=== PATIENT | male | born 1950 | race Caucasian/White ===

== ENCOUNTER → 2016-08-22 | Outpatient (CLI) | payer MEDICARE, OTHER ==
[2016-02-27 13:46] VITALS: BP 123/72
[~2016-08-22] MED LIST: ASPI-630 PO; SIMV20TA3 PO; TRIA1CAP3 PO
--- NOTE | 2016-08-22 12:21 | RAD ---
Examination: CT of the abdomen pelvis without contrast History: History of newly diagnosed prostate cancer Comparison: None available PQRS Compliance Statement: One or more of the following individualized dose reduction techniques were utilized for this examination: 1. Automated exposure control 2. Adjustment of the mA and/or kV according to patient size 3. Use of iterative reconstruction technique Technique: Axial CT images of the abdomen pelvis were performed without contrast. Coronal and sagittal reformats were performed Findings: The visualized bibasal lungs grossly appears unremarkable. The evaluation of the solid organs limited due to lack of IV contrast. Evaluation of bowel is limited lack of oral contrast. The visualized liver, spleen, adrenals grossly appears unremarkable. The gallbladder is mildly distended. The stomach is mildly distended. The small bowel is nondilated. Feces and gas noted throughout the colon The urinary bladder is mildly distended. Mildly enlarged prostate gland. No evidence of intrarenal collecting system calculi or hydronephrosis identified. The caliber of the aorta grossly appears unremarkable. Mild aortic atherosclerosis. Mild degenerative changes lumbar spine. Impression: 1. No acute intra-abdominal findings. 2. No obvious evidence of metastases. 2. Mildly enlarged prostate gland.
== END | disposition home or self-care (01) ==
LOC: CT 11:20
PROVIDERS: ATTEND Urology
DX: C61 Malignant neoplasm of prostate (principal); N40.0 Benign prostatic hyperplasia without lower urinary tract symptoms
CPT/HCPCS: 74176

== ENCOUNTER → 2016-12-21 | Outpatient (CLI) | payer MEDICARE, OTHER ==
[2016-02-27 13:46] VITALS: BP 123/72
--- NOTE | 2016-12-21 13:02 | RAD ---
Examination: Ultrasound right lower extremity venous duplex History: History of right thigh pain, calf pain. Comparison: None available Technique: Grayscale, color Doppler 2-D, spectral waveform analysis of the right lower extremity venous system were performed. Findings: The visualized common femoral vein, superficial femoral vein, popliteal vein demonstrate normal compression and augmentation of flow. The visualized calf veins are patent. Impression: No evidence of deep venous thrombosis identified in the visualized right lower extremity venous system.
== END | disposition home or self-care (01) ==
LOC: US 11:37
PROVIDERS: ATTEND Family Medicine
DX: M79.604 Pain in right leg (principal)
CPT/HCPCS: 93971

== ENCOUNTER → 2018-07-22 | Day surgery (SDC) | payer MEDICARE, OTHER ==
[~2018-07-22] MED LIST changes: +ALBUTEROL SULFATE 2.5 MG/3 ML NEBU. NEB PRN; +ATROPINE 0.5 MG/5 ML DISP.SYRIN. IV PRN; +DIAZIDE PO; +GLYCOPYRROLATE 1 MG/5 ML VIAL. ONE; +IV RINGERS SOLUTION,LACTATED 1,000 ML IV SCH; +LIDOCAINE 2% PF Vial for OR 5 ML VIAL. ONE; +NALOXONE 0.4 MG/ML VIAL. IV PRN; +ONDANSETRON PF 4 MG/2 ML VIAL. IV PRN; +PROPOFOL 40 ML IV ONE; +SIMV20TA PO; +diphenhydrAMINE 50 MG/ML VIAL IV PRN
[2018-07-22 11:56] VITALS: BP 105/62
== END | disposition home or self-care (01) ==
LOC: SURG 10:05
PROVIDERS: ATTEND Surgery
DX: Z12.11 Encounter for screening for malignant neoplasm of colon (principal); I10 Essential (primary) hypertension; E78.00 Pure hypercholesterolemia, unspecified; Z98.890 Other specified postprocedural states; Z79.82 Long term (current) use of aspirin; Z79.899 Other long term (current) drug therapy; Z85.46 Personal history of malignant neoplasm of prostate; Z72.89 Other problems related to lifestyle
CPT/HCPCS: G0121; J2704; J7120; G0105; J3490; J2001

== ENCOUNTER → 2020-02-29 | Outpatient (CLI) | payer MEDICARE, OTHER ==
[2018-07-22 11:56] VITALS: BP 105/62
[~2020-02-29] MED LIST changes: -ALBUTEROL SULFATE 2.5 MG/3 ML NEBU. NEB PRN; -ATROPINE 0.5 MG/5 ML DISP.SYRIN. IV PRN; -GLYCOPYRROLATE 1 MG/5 ML VIAL. ONE; -IV RINGERS SOLUTION,LACTATED 1,000 ML IV SCH; -LIDOCAINE 2% PF Vial for OR 5 ML VIAL. ONE; -NALOXONE 0.4 MG/ML VIAL. IV PRN; -ONDANSETRON PF 4 MG/2 ML VIAL. IV PRN; -PROPOFOL 40 ML IV ONE; +SIMV20TA18 PO; -SIMV20TA3 PO; -diphenhydrAMINE 50 MG/ML VIAL IV PRN
--- NOTE | 2020-02-29 10:27 | RAD ---
INDICATION: Reason: MASS LT BUTTOCK / Spl. Instructions: / History: COMPARISON: None. FINDINGS: Focused ultrasound images are obtained through the gluteal region bilaterally. Just deep to the skin surface in the left gluteal region within subcutaneous fat there is a 20 x 7 mm isoechoic region seen within compared to the adjacent fat. No drainable fluid collection. IMPRESSION: * Isoechoic region within the subcutaneous fat in the left gluteal region. This has a nonspecific appearance with one of the most common causes including a subcutaneous lipoma but incompletely characterized on ultrasound. If further workup is desired CT or MRI could confirm that this masslike structure is fatty in nature and to ensure that there is not a higher grade soft tissue component. Alternatively ultrasound follow-up could be obtained to ensure no growth. Electronically signed by: Lucio Borja MD (02/29/2020 10:24 AM) [id number]
== END ==
LOC: US 09:50
PROVIDERS: ATTEND Family Medicine
DX: R22.2 Localized swelling, mass and lump, trunk (principal)
CPT/HCPCS: 76882

== ENCOUNTER → 2020-06-30 | Outpatient (CLI) | payer MEDICARE, OTHER ==
[2018-07-22 11:56] VITALS: BP 105/62
[~2020-06-30] MED LIST changes: +IOHEXOL 240 MG/ML 50ML VIAL. ONE; +IOHEXOL 240 MG/ML 50ML VIAL. PO ONE; +IOHEXOL 300 MG/ML 75 ML VIAL. IV ONE
[2020-06-30 13:32] LABS: CREATININE 1.1 mg/dL (0.7-1.3); GFR 66.6; POTASSIUM 3.9 mmol/L (3.5-5.1)
[2020-06-30 13:38] LABS: ALBUMIN 3.8 g/dL (3.4-5.0); ALBUMIN/GLOBULIN RATIO 1.2 (1.0-1.7); TOTAL BILIRUBIN 0.8 mg/dL (0.2-1.0); TOTAL PROTEIN 7.1 g/dL (6.4-8.2)
--- NOTE | 2020-06-30 15:03 | RAD ---
ADDENDUM #1 Question root appear in this report due to a dictation system bug. Please disregard these characters . Electronically signed by: Reyes Mock MD (07/02/2020 9:17 AM) [facility]BDOMEN+PELVIS W History: Lower abdominal pain. Comparison: CT abdomen and pelvis 08/22/2016. Technique: CT of the abdomen and pelvis with oral and intravenous contrast. Findings: Lung bases: Clear lungs. No pleural or pericardial effusion. General abdomen: No ascites. No free air. Liver : Normal in size and attenuation. No masses seen. Gallbladder/Biliary Tree: Normal gallbladder. No intrahepatic or extrahepatic biliary ductal dilatati on. Pancreas: Normal. Spleen: Normal in size and attenuation. Adrenal Glands: Normal. Genitourinary: No hydronephrosis or hydroureter.?No renal masses identified. Normal partially distend ed bladder contour. Gastrointestinal: Unremarkable. Lymph nodes: No lymphadenopathy. Bilateral pelvic lymphoceles with mass effect on the bladder. Right external iliac chain lymphocele measuring 6.3 x 6.0 x 7.4 cm and left external iliac chain pelvic lym phocele measuring 2.5 x 2.0 x 3.4 cm. Vessels: Unremarkable. Pelvic Organs: Status post prostatectomy. Pelvic lymphoceles above. Soft tissues: Unremarkable. Bones: No acute or aggressive lesions. Impression: 1. No acute findings in the abdomen and pelvis. 2. Status post prostatectomy with large right, small left pelvic lymphoceles causing mass effect on the bladder, of uncertain relation to current symptomatology. ------ Exposure: One or more of the following individualized dose reduction techniques were utilized for thi s examination: 1. Automated exposure control 2. Adjustment of the mA and/or kV according to patient size 3. Use of iterative reconstruction technique. Electronically signed by: Reyes Mock MD (06/30/2020 3:00 PM) [facility]
== END ==
LOC: CT 09:38
PROVIDERS: ATTEND Family Medicine
DX: R10.30 Lower abdominal pain, unspecified (principal); I89.8 Other specified noninfective disorders of lymphatic vessels and lymph nodes; Z90.79 Acquired absence of other genital organ(s)
CPT/HCPCS: 36415; 74177; 80053; Q9966; Q9967

== ENCOUNTER → 2021-05-22 | Outpatient (CLI) | payer MEDICARE, OTHER ==
[2018-07-22 11:56] VITALS: BP 105/62
[~2021-05-22] MED LIST changes: -IOHEXOL 240 MG/ML 50ML VIAL. ONE; -IOHEXOL 240 MG/ML 50ML VIAL. PO ONE; -IOHEXOL 300 MG/ML 75 ML VIAL. IV ONE
[2021-05-22 10:27] LABS: CREATININE 1.2 mg/dL (0.7-1.3)
--- NOTE | 2021-05-22 11:08 | RAD ---
EXAM: Left buttock sonogram. HISTORY: Lump. TECHNIQUE: Sonographic imaging of the left buttock at the site of palpable concern was performed. COMPARISON: None. FINDINGS: There is a circumscribed solid nonvascular mass isoechoic to fat within the left buttock at the site of palpable concern measuring 2.7 cm in maximum dimension. IMPRESSION: 2.7 cm mass within the left buttock at the site of palpable concern, the appearance of wh ich favors a benign lipoma. Continued clinical follow-up of palpable abnormalities is recommended. Electronically signed by: Fabi Reyes MD (05/22/2021 11:06 AM) [id number]
== END ==
LOC: US 09:53
PROVIDERS: ATTEND Family Medicine
DX: R22.2 Localized swelling, mass and lump, trunk (principal)
CPT/HCPCS: 36415; 76881; 82565; 84520

== ENCOUNTER → 2021-05-22 | Outpatient (CLI) | payer MEDICARE, OTHER ==
[2018-07-22 11:56] VITALS: BP 105/62
[~2021-05-22] MED LIST changes: +IOHEXOL 300 MG/ML 75 ML VIAL. IV ONE
--- NOTE | 2021-05-22 13:31 | RAD ---
PQRS Compliance Statement: One or more of the following individualized dose reduction techniques were utilized for this examinat ion: 1. Automated exposure control 2. Adjustment of the mA and/or kV according to patient size 3. Use of iterative reconstruction technique CT ABDOMEN+PELVIS WO+W Clinical Indication: Reason: [id number] Comparison: CT abdomen and pelvis with contrast, June 30, 2020. Technique: Helical CT imaging of the abdomen and pelvis is performed before and after 75 cc of Omnipa que 300 IV contrast. Oral contrast not administered. Findings: The lung bases are clear. Cardiac size normal. The liver, gallbladder, spleen, pancreas, adrenal glands, abdominal aorta caliber, and kidneys are no rmal. The stomach is unremarkable. There is no small bowel obstruction. There is moderate stool throughout the colon. There is no colon wall thickening. No secondary signs of appendicitis. No abdominal adenop athy or free fluid. Right larger than the left pelvic lymphoceles are unchanged from the prior study. There is persistent mass effect on the urinary bladder. There is prostatectomy. No pelvic free fluid is seen. There are vasectomy clips. Stable probable bone island of the right femoral neck. IMPRESSION: 1. Right larger than left pelvic lymphoceles are unchanged. 2. No acute abdominal or pelvic abnormality. Electronically signed by: Robb Moreno MD (05/22/2021 1:29 PM) [facility]
== END ==
LOC: CT 09:41
PROVIDERS: ATTEND Urology
DX: I89.8 Other specified noninfective disorders of lymphatic vessels and lymph nodes (principal); Z90.79 Acquired absence of other genital organ(s)
CPT/HCPCS: 74178; Q9967